=== PATIENT | female | born 1995 | race Caucasian/White ===

== ENCOUNTER 2019-04-03 19:22 | Inpatient (IN) | payer OTHER ==
[~2019-04-03] VITALS: Ht 157.5 cm; Wt 59.0 kg
[2019-04-03] MEDS ORDERED: ORTHO TRI-CYCL1 EAC1 (19:33)
== END 2019-04-04 16:23 | disposition home or self-care (01) | DRG 343 ==
LOC: ER 19:22 → SEC-K 23:08 → SURH 23:08
PROVIDERS: ADMIT Surgery
PROC: 0DTJ4ZZ Resection of Appendix, Percutaneous Endoscopic Approach (ICD-10-PCS; principal; 2019-04-03)
PROC: BW21ZZZ Computerized Tomography (CT Scan) of Abdomen and Pelvis (ICD-10-PCS; 2019-04-03)
DX: K35.890 Other acute appendicitis without perforation or gangrene (principal)